=== PATIENT | male | born 1935 | race Caucasian/White ===

== ENCOUNTER 2017-02-05 15:10 | Emergency (ER) | payer OTHER, MEDICARE ==
[~2017-02-05] VITALS: Ht 177.8 cm; Wt 95.2 kg
[~2017-02-05 15:10] MED LIST: ALL300 PO; AMLO-110 PO; ASPI81TA28 PO; LPR50X PO; METO50TA16 PO; NITR0.4S UT; OMEG10007 PO
[2017-02-05 15:14] VITALS: TEMP 37; Ht 177.8 cm; Wt 95.2 kg
[2017-02-05] MEDS ORDERED: CEFAZOLIN SOD 1000MG/55 ML D5W IV STA (15:33)
--- NOTE | 2017-02-05 15:36 | EMERGENCY ROOM VISIT NOTE ---
History Report prepared by Ruben: Russell Monroe Under the Supervision of: Dr. Aury Neri D.O. First contact with patient: 15:20 Chief Complaint: LEG PAIN,LEG INJURY Stated Complaint: RIGHT LEG PAIN History of Present Illness The patient is an 81 year old male who presents to the Emergency Room with complaints of worsening right willis redness that started a week ago. He says that he was weed whacking 2 and a half weeks ago, and had a quarter of an inch plastic piece of the weed eater implanted into his right willis. The patient states that he pulled it out fully, and dressed his willis with peroxide. He then put on some Neosporin as well as a band-aid. He says that a week ago, the area that the plastic piece was implanted around started becoming red and swollen. The patient states that the area has been painful, and rates the pain as a 4 or 5 out of 10 in severity. He adds that the area has been getting more red over the week, so he went to Urgent Care yesterday and was put on Bactrim. He says that he has had 3 doses of the Bactrim so far, with no improvement so far. He notes that he called his primary care office today, and was recommended to come here to be treated. The patient says that he took 2 Tylenol for the pain 5 days ago, but nothing ever since then. He says that because of the Bactrim, he has had a headache all day and has been tired and nauseous. The patient notes that he ate yogurt prior to arrival, and it relieved the nausea. Per the patient's , the patient is borderline diabetic. The patient takes 2 baby aspirins per day. He denies any chills, vomiting, abdominal pain, discharge/drainage from the willis, or any other rashes or sores. Denies hx of MRSA. Source of History: patient, spouse/significant other Onset: A week ago Position: leg (right) Quality: other (red, swollen, painful) Timing: worsening Associated Symptoms: + headache (but probably due to Bactrim), + nausea ( probably due to medication), + fatigue (but probably due to Bactrim), No chills , No vomiting, No abdominal pain, No rash (any other rashes or sores) Note: Associated symptoms: Denies discharge/drainage from willis. Review of Systems See HPI for pertinent positives & negatives. A total of 10 systems reviewed and were otherwise negative. 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 Social History Smoking Status: Former Smoker Marital Status: Housing Status: lives with family Occupation Status: retired Current/Historical Medications Scheduled Allopurinol (Allopurinol), 300 MG PO DAILY Amlodipine (Norvasc), 2.5 MG PO DAILY Aspirin (Aspirin Ec), 81 MG PO DAILY Atorvastatin (Lipitor), 80 MG PO HS Calcitriol (Calcitriol), 0.25 MCG PO MWF Cephalexin (Keflex), 1 CAP PO BID Fish Oil ([place]-3), 1 CAPSULE PO BID Losartan Potassium (Cozaar), 100 MG PO DAILY Metoprolol Tartrate (Metoprolol Tartrate), 50 MG PO BID Metronidazole (Topical) (Metronidazole), 1 APPLN TOP PRN Prednisone (Prednisone), 5 MG PO PRN UD Sulfa/Trimethoprim (Bactrim Ds 800MG/160MG), 1 TAB PO BID Scheduled PRN Nitroglycerin (Nitrostat), 0.4 MG UT UD PRN for Chest Pain Allergies Coded Allergies: Procaine (Verified Allergy, Unknown, passed out, 06/23/16) Physical Exam Vital Signs Date Time Temp Pulse Resp B/P (MAP) Pulse Ox O2 Delivery O2 Flow Rate FiO2 02/05/17 17:45 82 20 168/71 97 02/05/17 16:40 91 20 179/82 97 Room Air 02/05/17 15:14 37.0 98 18 129/73 97 Room Air Physical Exam GENERAL: alert, well appearing, well nourished, no distress, non-toxic EYE EXAM: normal conjunctiva, PERRL and EOM's grossly intact OROPHARYNX: no exudate, no erythema, lips, buccal mucosa, and tongue normal and mucous membranes are moist NECK: supple, no nuchal rigidity, no adenopathy, non-tender LUNGS: Clear to auscultation. Normal chest wall mechanics HEART: no murmurs, S1 normal and S2 normal ABDOMEN: abdomen soft, non-tender, normo-active bowel sounds, no masses, no rebound or guarding. BACK: Back is symmetrical on inspection and there is no deformity, no midline tenderness, no CVA tenderness. SKIN: no rashes and no bruising UPPER EXTREMITIES: upper extremities are grossly normal. LOWER EXTREMITIES: Small area of redness in distal right lower extremity, no obvious retaining foreign body, no discharge, no bleeding. Mildly tender to palpation, trace to +1 pedal edema on right. No evidence of ascending lymphangitis. NEURO EXAM: Normal sensorium, cranial nerves II-XII grossly intact, normal speech, no gross weakness of arms, no gross weakness of legs. Gross sensation intact. Medical Decision & Procedures Laboratory Results 02/05/17 15:40 Red Blood Count 4.30, Mean Corpuscular Volume 97.0, Mean Corpuscular Hemoglobin 32.6, Mean Corpuscular Hemoglobin Concent 33.6, Mean Platelet Volume 11.4, Neutrophils (%) (Auto) 81.5, Lymphocytes (%) (Auto) 9.2, Monocytes (%) (Auto) 7.8, Eosinophils (%) (Auto) 0.6, Basophils (%) (Auto) 0.3, Neutrophils # (Auto) 2.91, Lymphocytes # (Auto) 0.33, Monocytes # (Auto) 0.28, Eosinophils # (Auto) 0.02, Basophils # (Auto) 0.01 02/05/17 15:40 Test 02/05/17 15:40 White Blood Count 3.57 K/uL (4.8-10.8) Red Blood Count 4.30 M/uL (4.7-6.1) Hemoglobin 14.0 g/dL (14.0-18.0) Hematocrit 41.7 % (42-52) Mean Corpuscular Volume 97.0 fL (80-100) Mean Corpuscular Hemoglobin 32.6 pg (25-34) Mean Corpuscular Hemoglobin Concent 33.6 g/dl (32-36) Platelet Count 102 K/uL (130-400) Mean Platelet Volume 11.4 fL (7.4-10.4) Neutrophils (%) (Auto) 81.5 % Lymphocytes (%) (Auto) 9.2 % Monocytes (%) (Auto) 7.8 % Eosinophils (%) (Auto) 0.6 % Basophils (%) (Auto) 0.3 % Neutrophils # (Auto) 2.91 K/uL (1.4-6.5) Lymphocytes # (Auto) 0.33 K/uL (1.2-3.4) Monocytes # (Auto) 0.28 K/uL (0.11-0.59) Eosinophils # (Auto) 0.02 K/uL (0-0.5) Basophils # (Auto) 0.01 K/uL (0-0.2) RDW Standard Deviation 47.5 fL (36.4-46.3) RDW Coefficient of Variation 13.5 % (11.5-14.5) Immature Granulocyte % (Auto) 0.6 % Immature Granulocyte # (Auto) 0.02 K/uL (0.00-0.02) Anion Gap 6.0 mmol/L (3-11) Est Creatinine Clear Calc Drug Dose 39.5 ml/min Estimated GFR () 42.9 Estimated GFR (Non- 37.0 BUN/Creatinine Ratio 16.2 (10-20) Calcium Level 9.1 mg/dl (8.5-10.1) Total Bilirubin 0.7 mg/dl (0.2-1) Aspartate Amino Transf (AST/SGOT) 30 U/L (15-37) Alanine Aminotransferase (ALT/SGPT) 31 U/L (12-78) Alkaline Phosphatase 67 U/L (45-117) Total Protein 7.1 gm/dl (6.4-8.2) Albumin 3.6 gm/dl (3.4-5.0) Globulin 3.5 gm/dl (2.5-4.0) Albumin/Globulin Ratio 1.0 (0.9-2) Laboratory results per my review. Medications Administered Medications (Trade) Dose Ordered Sig/Sohail Route Start Time Stop Time Status Last Admin Dose Admin Cefazolin Sodium (Ancef 1000mg/55 ml D5W) 1,000 mg NOW STAT IV 02/05/17 15:33 02/05/17 15:34 DC 02/05/17 15:47 1,000 MG ED Course 1523: The patient was evaluated in room C3. A complete history and physical exam was performed. 1533: I outlined the area on the patient's willis with a marking pen. Ordered Ancef 1000 mg/55 ml D5W 1000 mg IV. 1714: Upon reevaluation, the patient is feeling better. I discussed the findings and the treatment plan with the patient. He verbalizes agreement and understanding. He was discharged home. Medical Decision Differential diagnosis: Etiologies such as cellulitis, abscess, MRSA infection, DVT, necrotizing fasciitis, dermatitis, drug eruption, as well as others were entertained.. Pt obvious cellulitis on exam, doubt DVT based on PE. Mild leukopenia, no evidence of bacteremia/sepsis. Pt with hx of mild CKD, Cr today stable compared to prior. Discussed with pt risk of worsening renal function while on bactrim, however concern about changing to alternative antibiotic. Discussed addition of keflex, close f/u with PCP for recheck of cellulitis which was outlined with sterile marking pen and recheck of kidney function. Discussed hydration, probiotics, sx to watch/return for, risks/benefits of antibiotics, Pt with stable VS, well appearing at bedside. No evidence to suggest retained FB, nec fasc, ascending lymphangitis, pt has only been on antibiotic on day, I do not feel this qualities as failed outpt therapy yet. Medication Reconcilliation Current Medication List: was personally reviewed by me Blood Pressure Screening Patient's blood pressure: Elevated blood pressure Blood pressure disposition: Elevated BP felt to be situational Impression Primary Impression: Leg pain, right Additional Impression: Cellulitis Scribe Attestation The scribe's documentation has been prepared under my direction and personally reviewed by me in its entirety. I confirm that the note above accurately reflects all work, treatment, procedures, and medical decision making performed by me. Departure Information Dispostion Home / Self-Care Prescriptions Cephalexin (KEFLEX) 500 Mg Cap 1 CAP PO BID for 7 Days, #14 CAP Prov: Aury Neri, 02/05/17 Referrals Jimmy Cota D.O. (PCP) Patient Instructions My [facility] Additional Instructions Please call and follow-up with your family doctor. Please continue the antibiotics as prescribed. Please monitor the rash for any changes. If the redness spreads outside the lines, you develop fevers/chills, nausea/vomiting, notice increased swelling of the leg, develop redness streaking up the leg, or you have any other new or concerning symptoms, please return to the emergency room. Your kidney number wasn't totally normal today, but it appears this has happened in the past. The bactrim, antibiotic, you are taking though can affect your kidneys also. Your kidney number needs to be rechecked by your family doctor. If you are feeling worse, if may need to be rechecked sooner. Please consider taking a probiotic while you are taking the antibiotic. Please drink plenty of water. If you have any other new concerns, please return to the emergency room. Problem Qualifiers Additional Impression: Cellulitis Site of cellulitis: extremity Site of cellulitis of extremity: lower extremity Laterality: right Qualified Codes: L03.115 - Cellulitis of right lower limb
[2017-02-05] MEDS ORDERED: CALC1CAP36 PO (15:38)
[2017-02-05] MEDS ORDERED: SULF800T23 PO (15:38)
[2017-02-05] MEDS ORDERED: METR0.7536 TOP (15:39)
[2017-02-05] MEDS ORDERED: PRED-301 PO (15:39)
[2017-02-05 16:22] LABS: BASO % 0.3 %; BASO ABS # 0.01 K/uL (0-0.2); COMPLETE YES; EOS % 0.6 %; HEMATOCRIT 41.7 % (42-52); IG% 0.6 %; LYMPH % 9.2 %; LYMPH ABS # 0.33 K/uL (1.2-3.4); MEAN CORPUSCULAR HEMOGLOBIN 32.6 pg (25-34); MEAN CORPUSCULAR HGB CONC 33.6 g/dl (32-36); MEAN PLATELET VOLUME 11.4 fL (7.4-10.4); MONO % 7.8 %; NEUT % 81.5 %; PLATELET COUNT 102 K/uL (130-400); WHITE BLOOD COUNT 3.57 K/uL (4.8-10.8)
[2017-02-05 16:43] LABS: BUN/CREATININE RATIO 16.2 (10-20); CALCIUM 9.1 mg/dl (8.5-10.1); CREATININE 1.7 mg/dl (0.60-1.40); POTASSIUM 4.7 mmol/L (3.5-5.1)
[2017-02-05] MEDS ORDERED: CEPH-571 PO (17:39)
[2017-02-05 17:45] VITALS: BP 168/71; PULSE 82; O2SAT 97
[2017-02-05] MEDS ORDERED: LOSA100T65 PO (19:40)
[2017-02-05] MEDS ORDERED: ATOR-26 PO (22:15)
== END 2017-02-05 17:46 | disposition home or self-care (01) ==
LOC: C.EDB 15:11 → C.EDC 17:46
DX: M79.604 Pain in right leg (principal); L03.115 Cellulitis of right lower limb; E11.9 Type 2 diabetes mellitus without complications; I10 Essential (primary) hypertension; I25.10 Atherosclerotic heart disease of native coronary artery without angina pectoris; M19.90 Unspecified osteoarthritis, unspecified site; Z98.61 Coronary angioplasty status; Z87.11 Personal history of peptic ulcer disease; Z79.82 Long term (current) use of aspirin; Z79.899 Other long term (current) drug therapy; Z87.891 Personal history of nicotine dependence; Z88.8 Allergy status to other drugs, medicaments and biological substances

== ENCOUNTER 2019-02-02 08:11 | Inpatient (IN) ==
--- OUTSIDE RECORDS SUMMARY | 2019-02-02 08:14 | External Medical Summary | Continuity of Care Document ---
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 Quantity: 30 Refills: 5 amLODIPine Besylate 5 MG Oral Tablet; TAKE 0.5 TABLET Daily Quantity: 30 Refills: 1 Aspirin TABS Refills: 0 Metoprolol Tartrate TABS Refills: 0 Lipitor TABS Refills: 0 Losartan Potassium TABS Refills: 0 Kenalog 0.1 % OINT Refills: 0 [place] 3 CAPS Refills: 0 Mometasone Furoate 0.1 % External Ointme nt; APPLY SPARINGLY TO AFFECTED AREA(S) ONCE DAILY Jorden Payton Ajay Start: 18-Feb-2016 Quantity: 1 15 GM Tube Refills: 3 Econazole Nitrate 1 % External Cream; AP PLY SPARINGLY TO THE AFFECTED AREA(S) TWICE DAILY. Jorden Payton Start: 23-Apr-2015 Quantity: 1 85 GM Tube Refills: 2 Nitrostat 0.4 MG Sublingual Tablet Subli ngual; PLACE 1 TABLET UNDER THE TONGUE EVERY 5 MINUTES FOR UP TO 3 DOSES NEEDED FOR CHEST PAIN.CALL 911 IF PAIN PERSISTS. Start: 18-Dec-2015 Quantity: 1 25 Tablet Sublingual Bottle Refills: 0 predniSONE 5 MG Oral Tablet; TAKE 1 TABLET DAILY. Start: 18-Dec-2015 Refills: 0 Procedures History of Carotid Thromboendarterectomy Status: Completed History of Cardiac Cath Lesion 1, Primary Treat Device: Sten t Status: Completed History of Appendectomy Status: Complete d Immunizations Influenza Comments:Approx 14Se p2014 Family History Unknown Family Member No pertinent family history (V49.89) (Z78.9) Status: Active Comments: Family History Social History - Smoking Status Never smoker Plan of Treatment Planned Observations Planned Goals not documented Results No Known Results Results not documented Encounters Appointment; Valente Mcmillan Au.D.|CCC-A 01-Jun-2017 7:40 Encounter Diagnosis: Problem not documented"
[2019-02-02] MEDS ORDERED: NITROGLYCERIN SL 0.4 MG/TAB TAB SL PRN ×2 (08:33→11:30)
[2019-02-02] MEDS ORDERED: ASPIRIN CHEW 324 MG PO STA (08:33)
[2019-02-02 08:47] LABS: Basophils # (auto) 0.01 K/uL (0-0.2); Basophils % (auto) 0.2 %; Eosinophils # (auto) 0.22 K/uL (0-0.5); Eosinophils % (auto) 4.3 %; Hematocrit (blood only) 40.7 % (42-52); Hemoglobin 13.3 g/dL (14.0-18.0); Immature Granulocytes # (auto) 0.01 K/uL (0.00-0.02); Immature Granulocytes % (auto) 0.2 %; Lymphocytes # (auto) 1.57 K/uL (1.2-3.4); Lymphocytes % (auto) 30.5 %; Mean Corpuscular Hgb Conc 32.7 g/dL (32-36); Mean Corpuscular Volume 97.6 fL (80-100); Mean Platelet Volume 11.8 fL (7.4-10.4); Monocytes # (auto) 0.62 K/uL (0.11-0.59); Monocytes % (auto) 12.1 %; Neutrophils # (auto) 2.71 K/uL (1.4-6.5); Neutrophils % (auto) 52.7 %; Platelet Count 109 K/uL (130-400); RDW Coefficient of Variation 14.1 % (11.5-14.5); RDW Standard Deviation 50.1 fL (36.4-46.3); Red Blood Count 4.17 M/uL (4.7-6.1); White Blood Count 5.14 K/uL (4.8-10.8)
[2019-02-02 08:54] LABS: Albumin Level 3.6 gm/dl (3.4-5.0); Blood Urea Nitrogen 34 mg/dl (7-18); Carbon Dioxide 27 mmol/L (21-32); Chloride 107 mmol/L (98-107); Creatinine Clr Calc Pharmacy 36.6 ml/min; Est GFR (Non-African American) 34.5; Glucose 139 mg/dl (70-99); Potassium 4.2 mmol/L (3.5-5.1); Sodium 141 mmol/L (136-145)
--- NOTE | 2019-02-02 08:57 | XRay Report ---
XR chest 1V portable HISTORY: 83 years-old Male Chest Pain acute atypical chest pain COMPARISON: Chest radiograph 06/23/2016 TECHNIQUE: Portable AP view of the chest FINDINGS: Cardiac silhouette appears normal. Mild interstitial coarsening of the mid and lower lung zones has s lightly progressed from comparison. Calcified plaque of the thoracic aortic arch. There is no pneumot horax, large pleural effusion or overt pulmonary edema. Mild blunting of the costophrenic angles. Deg enerative changes of the shoulders and spine. IMPRESSION: Mild interstitial coarsening has progressed from 2016, likely on a chronic basis. Mild pu lmonary edema or nonspecific pneumonitis also within the differential. The above report was generated using voice recognition software. It may contain grammatical, syntax o r spelling errors. Electronically signed by: Angel Gaming M.D. 02/02/2019 8:56 AM
[2019-02-02 08:59] LABS: Alanine Aminotransferase 53 U/L (12-78); Albumin Globulin Ratio 1.1 (0.9-2); Alkaline Phosphatase 77 U/L (45-117); Aspartate Aminotransferase 44 U/L (15-37); Bilirubin,Total 0.6 mg/dl (0.2-1); Globulin 3.3 gm/dl (2.5-4.0); Total Protein 6.9 gm/dl (6.4-8.2); Troponin I < 0.015 ng/ml (0-0.045)
--- NOTE | 2019-02-02 10:24 | Emergency Department Note ---
Entered by Kirstin Angelo acting as a scribe for Debra Smith MD History of Present Illness General Chief complaint: Chest Pain Stated complaint: CHEST PAIN Source: patient History of Present Illness Onset (ago): day(s) (several) Location: chest Radiation: non-radiation Pain Consistency: + intermittent Maximum Pain Intensity: 8 Current Pain Intensity: 8 Quality: + other (heaviness; pressure) Associated symptoms: + diaphoresis, + shortness of breath and + other (positive dizziness); no nausea/vomiting Treatments prior to arrival: other (baby aspirin) The patient is a 83 year old male who presents to the Emergency Room with complaints of intermittent chest pain that began several days prior to arrival. The patient describes this "discomfort" as a heaviness and pressure, and rates it at an 8/10. He states that with this discomfort he sometimes feels short of breath, dizzy, and sweaty. The patient denies radiation of his pain to his arms and jaw. He denies nausea or vomiting. The patient reports that he had a stent placed in 2004, and states that his last stress test was last year. He states that he took a baby aspirin last night, but denies taking Nitro. Home Medications Home Medications Medication Instructions Recorded Confirmed Type allopurinol 300 mg PO DAILY 02/02/19 02/02/19 History amlodipine 5 mg PO DAILY 02/02/19 02/02/19 History aspirin 81 mg PO DAILY 02/02/19 02/02/19 History atorvastatin 80 mg PO PM 02/02/19 02/02/19 History furosemide 20 mg PO DAILY 02/02/19 02/02/19 History isosorbide mononitrate 30 mg PO QAM 02/02/19 02/02/19 History metoprolol tartrate 50 mg PO BID 02/02/19 02/02/19 History nitroglycerin 0.4 mg SUBLINGUAL UD 02/02/19 02/02/19 History omega-3 fatty acids 1,250 mg PO DAILY 02/02/19 02/02/19 History ranitidine HCl 150 mg PO DAILY PRN 02/02/19 02/02/19 History Allergies Allergy/AdvReac Type Severity Reaction Status Date / Time procaine Allergy Unknown passed out Verified 02/02/19 08:42 Bactrim AdvReac Mild HIVES Unverified 10/13/17 07:39 sulfamethoxazole AdvReac Mild HIVES Unverified 02/02/19 08:42 trimethoprim AdvReac Mild HIVES Unverified 02/02/19 08:42 Past Med/Surg History Medical History Chronic cough (Chronic Unknown) Idiopathic thrombocytopenic purpura (Resolved Unknown) Reflux gastritis (Acute) Family History Other No significant family history Social History Feels Safe at Home: Yes Smoking Status: Former smoker Review of Systems See HPI for pertinent positives & negatives. and A total of 10 systems reviewed and were otherwise negative Physical Exam Vital Signs Vital Signs - 24 hr 02/02/19 08:15 02/02/19 08:24 02/02/19 08:30 Temperature 36.4 C L Temperature Source Oral Sepsis Recent Fever Within 48 Hours No Sepsis Action Taken by Nursing No Action Required Pulse Rate 64 54 L 56 L Pulse Rate from SpO2 Sensor 60 58 L Respiratory Rate 18 23 18 Blood Pressure 117/69 148/95 H 135/89 Blood Pressure Mean 85 112 104 Blood Pressure Position Sitting Pulse Oximetry 95 99 98 Oxygen Delivery Method Room Air Nasal Cannula Nasal Cannula Oxygen Flow Rate 2 2 02/02/19 08:37 02/02/19 08:48 02/02/19 09:00 Temperature Temperature Source Sepsis Recent Fever Within 48 Hours Sepsis Action Taken by Nursing Pulse Rate 55 L 49 L Pulse Rate from SpO2 Sensor 51 L 51 L Respiratory Rate 19 22 Blood Pressure 121/74 145/67 H Blood Pressure Mean 89 93 Blood Pressure Position Pulse Oximetry 98 98 Oxygen Delivery Method Room Air Nasal Cannula Nasal Cannula Oxygen Flow Rate 2 2 02/02/19 09:31 02/02/19 09:51 02/02/19 10:01 Temperature Temperature Source Sepsis Recent Fever Within 48 Hours Sepsis Action Taken by Nursing Pulse Rate 58 L 55 L 56 L Pulse Rate from SpO2 Sensor 61 57 L 57 L Respiratory Rate 24 18 20 Blood Pressure 111/83 136/83 126/63 Blood Pressure Mean 92 100 84 Blood Pressure Position Pulse Oximetry 94 95 96 Oxygen Delivery Method Room Air Oxygen Flow Rate Vital signs reviewed. General: Well-appearing 83 year old male, in no significant distress. HEENT: No scleral icterus, PERRLA, neck supple. Atraumatic. Cardiovascular: Regular rate and rhythm, no extra sounds. Pulmonary: Clear to auscultation bilaterally, normal work of breathing. Abdomen: Obese abdomen. Soft, nontender, nondistended, positive bowel sounds. Musculoskeletal: Atraumatic, no peripheral edema. Neurologic: Patient awake alert and oriented x 3 Skin: Warm, dry, no rash Course 0831: Past medical records reviewed. The patient was evaluated in room A10. A complete history and physical exam was performed. 0911: I discussed the case with Ivette Daniels PA-C who accepts the patient for further evaluation. 0913: I checked on and updated the patient. He is in agreement with the treatment plan. Administered Medications Nitroglycerin (Nitrostat) 0.4 mg SL UD PRN PRN Reason: Chest Pain Stop: 03/04/19 08:32 Last Admin: 02/02/19 08:42 Dose: 0.4 mg Documented by: [id number] Discontinued Medications Aspirin (Aspirin) 324 mg PO NOW STA Stop: 02/02/19 08:34 Last Admin: 02/02/19 08:40 Dose: 324 mg Documented by: [id number] Medical Decision Making Differential Diagnosis Differential diagnosis: Etiologies such as cardiac ischemia, aortic dissection, pulmonary embolism, pneumonia, pneumothorax, musculoskeletal, infections, pericarditis, myocarditis, esophageal rupture, gastrointestinal, as well as others were entertained. Medical Records Attestation: I reviewed the patient's medical records. Home Medications Current Medication List: was personally reviewed by me Laboratory Data Attestation: I reviewed the patient's lab results. Result diagrams: 02/02/19 08:24 02/02/19 08:24 Lab Results 02/02/19 02/02/19 02/02/19 Range/Units 08:24 08:24 08:24 WBC 5.14 (4.8-10.8) K/uL RBC 4.17 L (4.7-6.1) M/uL Hgb 13.3 L (14.0-18.0) g/dL Hct 40.7 L (42-52) % MCV 97.6 (80-100) fL MCH 31.9 (25-34) pg MCHC 32.7 (32-36) g/dL RDW Std Deviation 50.1 H (36.4-46.3) fL RDW Coeff of Bill 14.1 (11.5-14.5) % Plt Count 109 L (130-400) K/uL MPV 11.8 H (7.4-10.4) fL Immature Gran % (Auto) 0.2 % Neut % (Auto) 52.7 % Lymph % (Auto) 30.5 % [place] % (Auto) 12.1 % Eos % (Auto) 4.3 % Baso % (Auto) 0.2 % Immature Gran # (Auto) 0.01 (0.00-0.02) K/uL Neut # (Auto) 2.71 (1.4-6.5) K/uL Lymph # (Auto) 1.57 (1.2-3.4) K/uL [place] # (Auto) 0.62 H (0.11-0.59) K/uL Eos # (Auto) 0.22 (0-0.5) K/uL Baso # (Auto) 0.01 (0-0.2) K/uL Sodium 141 (136-145) mmol/L Potassium 4.2 (3.5-5.1) mmol/L Chloride 107 (98-107) mmol/L Carbon Dioxide 27 (21-32) mmol/L Anion Gap 7.0 (3-11) BUN 34 H (7-18) mg/dl Creatinine 1.78 H (0.6-1.4) mg/dl Est Cr Clr Drug Dosing 36.6 ml/min Est GFR ( Amer) 40.0 Est GFR (Non-Af Amer) 34.5 BUN/Creatinine Ratio 19.0 (10-20) Glucose 139 H (70-99) mg/dl Calcium 9.0 (8.5-10.1) mg/dl Magnesium 2.1 (1.8-2.4) mg/dl Total Bilirubin 0.6 (0.2-1) mg/dl AST 44 H (15-37) U/L ALT 53 (12-78) U/L Alkaline Phosphatase 77 (45-117) U/L Troponin I < 0.015 (0-0.045) ng/ml Total Protein 6.9 (6.4-8.2) gm/dl Albumin 3.6 (3.4-5.0) gm/dl Globulin 3.3 (2.5-4.0) gm/dl Albumin/Globulin Ratio 1.1 (0.9-2) Lipase 194 (73-393) U/L TSH 2.640 (0.300-4.500) uIu/ml Imaging Data Radiologist's Impression: Radiology results as stated below per my review and the radiologist's interpretation: XR chest 1V portable HISTORY: 83 years-old Male Chest Pain acute atypical chest pain COMPARISON: Chest radiograph 06/23/2016 TECHNIQUE: Portable AP view of the chest FINDINGS: Cardiac silhouette appears normal. Mild interstitial coarsening of the mid and lower lung zones has slightly progressed from comparison. Calcified plaque of the thoracic aortic arch. There is no pneumothorax, large pleural effusion or overt pulmonary edema. Mild blunting of the costophrenic angles. Degenerative changes of the shoulders and spine. IMPRESSION: Mild interstitial coarsening has progressed from 2016, likely on a chronic basis. Mild pulmonary edema or nonspecific pneumonitis also within the differential. The above report was generated using voice recognition software. It may contain grammatical, syntax or spelling errors. Electronically signed by: Angel Gaming M.D. 02/02/2019 8:56 AM ECG Data Attestation: I personally reviewed and interpreted this ECG as follows: Indication: chest pain Rate (beats per minute): 62 Rhythm: atrial fibrillation Findings: no acute ischemic change and no ectopy Blood Pressure Blood Pressure Findings: Normal blood pressure MDM Narrative This patient was evaluated and appeared to be in no significant distress. IV access was obtained and laboratory work was drawn. The patient was placed on the media professional and found to be in a normal sinus rhythm. EKG reveals no evidence of acute ischemic change. Chest x-ray was performed and reveals no focal infiltrate. Laboratory work reveals a negative troponin. Patient has a history of CAD and coronary stent. He will be evaluated by the hospitalist service for further cardiac evaluation. He is aware of this plan and agrees. Impression & Plan Chest pain, CAD (coronary artery disease) Discharge Plan Visit Data Chief Complaint: Chest Pain Stated Complaint: CHEST PAIN ED Provider: Debra Smith Discharge Problem: Chest pain, CAD (coronary artery disease) Patient Disposition: Being Evaluated by Hospitalist Forms Stand Alone Forms: [facility] WebAction Prescriptions Prescriptions: No Action atorvastatin 80 mg tablet 80 mg PO PM RF: 0 isosorbide mononitrate 30 mg tablet extended release 24 hr 30 mg PO QAM RF: 0 amlodipine 5 mg tablet 5 mg PO DAILY RF: 0 metoprolol tartrate 50 mg tablet 50 mg PO BID RF: 0 allopurinol 300 mg tablet 300 mg PO DAILY RF: 0 furosemide 20 mg tablet 20 mg PO DAILY RF: 0 aspirin 81 mg Tablet,Delayed Release (Dr/Ec) 81 mg PO DAILY RF: 0 ranitidine HCl 150 mg Tablet 150 mg PO DAILY PRN (Reason: Heartburn) RF: 0 nitroglycerin 0.4 mg Tablet, Sublingual 0.4 mg sublingual UD RF: 0 omega-3 fatty acids 1,250 mg Capsule 1,250 mg PO DAILY RF: 0 Referrals Referrals: Jimmy Cota DO [Primary Care Provider] - Discharge Problem: Chest pain Qualifiers: Chest pain type: precordial pain Qualified Code(s): R07.2 - Precordial pain CAD (coronary artery disease) Qualifiers: Coronary Disease-Associated Artery/Lesion type: [place] artery [place] vs. transplanted heart: [place] heart Associated angina: with unstable angina Qualified Code(s): I25.110 - Atherosclerotic heart disease of [place] coronary artery with unstable angina pectoris The scribe's documentation has been prepared under my direction and personally reviewed by me in its entirety. I confirm that the note above accurately reflects all work, treatment, procedures, and medical decision making performed by me.
[2019-02-02 10:26] LABS: Magnesium 2.1 mg/dl (1.8-2.4)
--- NOTE | 2019-02-02 10:50 | History & Physical Report ---
Date of Service February 02, 2019 Assessment & Plan (1) Chest pain: (2) CAD (coronary artery disease): (3) Bradycardia: (4) Atrial fibrillation: Pt is 83 y/o M with PMH CAD s/p bare metal stent to left circumflex in 2005, HTN, HLD, DM II, CKD III, carotid stenosis s/p right carotid endartere ctomy 2004, PVD, gout, h/o ITP presented with c/o intermittent chest tightness x couple of days with associated SOB, dizziness. Patient reports hx of progressive exertional SOB and occasional chest tightness with overexertion for several months and was started on Imdur in 10/2018. Hx 2018 history echo: EF: 55-59%, grade 2 diastolic dysfunction, mild mitral regurgitation, trace tricuspid regurgitation, normal wall motion Hx 01/2018 Lexiscan nuclear cardiac stress test: negative for ischemia. normal wall motion. The left ventricular ejection fraction:63%. In ER patient was given aspirin 324 mg p.o., nitroglycerin sublingual x1 reducing CP from 8 out of 10 to 0-0.5/10. Denies any further SOB/dizziness. Heart rate 40's-60's. BP: 117/69, 145/67, 95-98% on room air. Negative initial troponin. EKG: afib, rate 62. No leukocytosis, H/H: 13/40 (at baseline), Plt: 109, TSH: 2.6, magnesium: 2.1 CXR: Mild interstitial coarsening has progressed from 2016, likely on a chronic basis. Mild pulmonary edema or nonspecific pneumonitis also within the differential. No previous h/o A-fib Chest pain R/O ACS. Risk factors: CAD, HTN, hyperlipidemia A-Fib -Monitor Vitals -Repeat EKG in am -Will trend troponin -Echo -lipid panel in am, continue statin -Continue aspirin -Hold metoprolol -Nitro prn CP and repeat EKG for CP -Will hold home lopressor 50mg bid secondary to bradycardia -Will hold on Heparin secondary to hx ITP, will appreciate recommendations from cardiology -Cardiology consult (5) HTN (hypertension): Stable -Continue amlodipine, lasix (6) CKD (chronic kidney disease), stage III: Cr: 1.78. Baseline ~1.6 -Monitor renal functions -Avoid nephrotoxic agents when possible (7) Diabetes mellitus, type II: Diet controlled A1c: 6.6 on 10/12/18 (8) HLD (hyperlipidemia): -Continue atorvastatin (9) History of ITP: No active bleeding Plt: 109 and are at baseline -Monitor CBC (10) Gout: -Continue allopurinol (11) Carotid stenosis: S/P R carotid endarterectomy DVT Prophylaxis -SCDs Full code as per discussion with pt and pt's Follows with Dr Cota for routine care Pt was seen and care coordinated with Dr Gee. See addendum History of Present Illness Chief Complaint: Chest pain Primary Care Provider: Jimmy Cota, DO Pt is 83 y/o M with PMH CAD s/p bare metal stent to left circumflex in 2004, HTN, HLD, DM II, CKD III, carotid stenosis s/p right carotid endarterectomy 2004, PVD, gout, h/o ITP presented to ER with complaint of chest pain. Patient reports history of progressive exertional shortness of breath and occasional chest tightness with overexertion for several months. Was seen cardiology clinic 10/2018 and at that point time patient reports did not want further testing and Imdur was added. Patient states initially he felt like Imdur was helpful however felt like that was short-lived. Patient states over the past several days has been having intermittent chest tightness with associated shortness of breath and dizziness. Reports symptoms can happen at rest or with walking. Symptoms can last for approximately 30 minutes and then resolved. Patient reports that he has not tried any nitroglycerin at home for this pain. Pt states that he sweats easily and is unsure if he has increased diaphoresis with these episodes. He reports having his morning medicines today including Lopressor 50 mg, indoor 30 mg, amlodipine 5 mg, baby aspirin, furosemide 20 mg. Denies fever/chills, N/V/D/C, [place],syncope, vision changes, neck pain, orthopnea, palpitations, cough, sore throat, choking, otalgia, rhinorrhea, abdominal pain, paresthesias, weakness, extremity weakness, extremity edema, rashes, urinary symptoms. In ER patient was given aspirin 324 mg p.o., nitroglycerin sublingual x1 taking chest discomfort from 8 out of 10 to 0-0.5/10 and patient denies any further shortness of breath or dizziness. Heart rate 40's-60's. BP: 117/69, 145/67, 95-98% on room air. Negative initial troponin. 2018 history echo: EF: 55-59%, grade 2 diastolic dysfunction, mild mitral regurgitation, trace tricuspid regurgitation, normal wall motion 01/2018 Lexiscan nuclear cardiac stress test: negative for ischemia. normal wall motion. The left ventricular ejection fraction:63%. [place] [facility] [place] 95% stenosis in PDA, 60% stenosis origin of the first obtuse marginal branch, 70% stenosis at junction of proximal and mid RCA, diffuse disease throughout the LAD Allergies Allergy/AdvReac Type Severity Reaction Status Date / Time procaine Allergy Unknown passed out Verified 02/02/19 08:42 Bactrim AdvReac Mild HIVES Unverified 04/10/17 07:39 sulfamethoxazole AdvReac Mild HIVES Unverified 02/02/19 08:42 trimethoprim AdvReac Mild HIVES Unverified 02/02/19 08:42 Home Medications Home Medications Medication Instructions Recorded Confirmed Type allopurinol 300 mg PO DAILY 02/02/19 02/02/19 History amlodipine 5 mg PO DAILY 02/02/19 02/02/19 History aspirin 81 mg PO DAILY 02/02/19 02/02/19 History atorvastatin 80 mg PO PM 02/02/19 02/02/19 History furosemide 20 mg PO DAILY 02/02/19 02/02/19 History isosorbide mononitrate 30 mg PO QAM 02/02/19 02/02/19 History metoprolol tartrate 50 mg PO BID 02/02/19 02/02/19 History nitroglycerin 0.4 mg SUBLINGUAL UD 02/02/19 02/02/19 History omega-3 fatty acids 1,250 mg PO DAILY 02/02/19 02/02/19 History ranitidine HCl 150 mg PO DAILY PRN 02/02/19 02/02/19 History Past Med/Surg History Medical History GERD (gastroesophageal reflux disease) (Chronic) History of ITP (Chronic) PVD (peripheral vascular disease) (Chronic) Carotid stenosis (Chronic) CKD (chronic kidney disease), stage III (Chronic) Diabetes mellitus, type II (Chronic) HLD (hyperlipidemia) (Chronic) HTN (hypertension) (Chronic) CAD (coronary artery disease) (Chronic) Chronic cough (Chronic Unknown) Idiopathic thrombocytopenic purpura (Resolved Unknown) Surgical History History of cardiac catheterization (Chronic) History of right-sided carotid endarterectomy (Chronic) Family History Other Diabetes Hypertension Stroke Social History Preferred Language: Greek Communication Ability: Effective Apprentice Stylist Required: No Beliefs That Will Affect Care: None Current Living Situation: Spouse Other Information That Helps Us Care for You: No Feels Safe at Home: Yes Safety Concerns: Feels Safe At This Time Smoking Status: Former smoker Smoking End Date: Quit 1973, had smoked 2ppd x 20 years ; Hx Alcohol Use: Yes Alcohol type: wine Hx Substance Use: No Review of Systems Review of Systems: All systems reviewed & are unremarkable except as noted in HPI & below Physical Exam Physical Exam: General: no acute distress, WDWN Head: normocephalic, atraumatic Eyes: PERRL, EOM's intact, conjunctiva non-injected, anicteric ENT: normal inspection external ears, nose, mucous membranes moist Neck: supple, trachea midline Lungs: clear, no respiratory distress, no wheezing/rhonchi/rales CV: rate 56, irregular, no murmur noted, no pretibial edema Abd: normal BS, soft, non-tender Ext: no cyanosis, no calf tenderness Neuro: A&O x 3, no focal deficits noted, normal affect Skin: warm, dry Results & Data Vital Signs (Past 12 Hours) Vital Signs Temp Pulse Resp BP Pulse Ox 02/02/19 10:01 56 L 20 126/63 96 02/02/19 09:51 55 L 18 136/83 95 02/02/19 09:31 58 L 24 111/83 94 02/02/19 09:00 49 L 22 145/67 H 98 02/02/19 08:48 55 L 19 121/74 98 02/02/19 08:30 56 L 18 135/89 98 02/02/19 08:24 54 L 23 148/95 H 99 02/02/19 08:15 36.4 C L 64 18 117/69 95 Laboratory Results Short CBC 02/02/19 Range/Units 08:24 WBC 5.14 (4.8-10.8) K/uL Hgb 13.3 L (14.0-18.0) g/dL Hct 40.7 L (42-52) % Plt Count 109 L (130-400) K/uL BMP 02/02/19 08:24 Sodium 141 Potassium 4.2 Chloride 107 Carbon Dioxide 27 BUN 34 H Creatinine 1.78 H Glucose 139 H Calcium 9.0 Cardiac Enzymes 02/02/19 Range/Units 08:24 Troponin I < 0.015 (0-0.045) ng/ml Liver Function 02/02/19 Range/Units 08:24 Total Bilirubin 0.6 (0.2-1) mg/dl AST 44 H (15-37) U/L ALT 53 (12-78) U/L Alkaline Phosphatase 77 (45-117) U/L Albumin 3.6 (3.4-5.0) gm/dl Diagnostic Findings CXR: IMPRESSION: Mild interstitial coarsening has progressed from 2016, likely on a chronic basis. Mild pulmonary edema or nonspecific pneumonitis also within the differential. Supervising Physician Co-Signing Physician Notes Pt was seen and examined. Agreed with Ivette DAVIS exam, assessment and plan. 83 y/o M with PMH CAD s/p bare metal stent to left circumflex in 2004, HTN, HLD, DM II, CKD III, carotid stenosis s/p right carotid endarterectomy 2004, PVD, gout, h/o ITP presented to the ER for Episode of intermittent chest tightness associated with SOB and dizziness for the last few weeks. Pt said that he ran out of breath easily with minimal exertion. EKG done in the ER was found to be in Afib with HR in the 50's to 60's. Troponin negative on admission, will trend troponin. Will consult cardiology. Will hold on anticoagulant for now due to history of ITP, low platelet and episodes of nose bleeding in the past. Will discuss anticoagulant with cardio. Will get an echo. Will monitor in tele. HR in the 40, will resume metoprolol when HR improves. MD Gerard (1) CAD (coronary artery disease) Associated angina: with unstable angina Coronary Disease-Associated Artery/Lesion type: [place] artery [place] vs. transplanted heart: [place] heart Qualified Code(s): I25.110 - Atherosclerotic heart disease of [place] coronary artery with unstable angina pectoris (2) Chest pain Chest pain type: precordial pain Qualified Code(s): R07.2 - Precordial pain
[2019-02-02] MEDS ORDERED: ONDANSETRON INJ 2 MG/ML 2 ML VIAL IV PRN (11:30)
[2019-02-02] MEDS ORDERED: Heparin IV Standard *NO* Bolus IV SCH (14:15)
[2019-02-02] MEDS ORDERED: HEPARIN SODIUM/DEXTROSE 25,000 UNITS/500 ML BAG IV SCH (14:40)
--- NOTE | 2019-02-02 16:44 | Consultation Report ---
DATE OF ADMISSION: 02/02/2019 CONSULTATION REQUESTED BY: Mary Guillen PA-C. REASON FOR CONSULTATION: Chest discomfort and new onset atrial fibrillation. HISTORY OF PRESENT ILLNESS: Mr. Apodaca is a very pleasant 83-year-old gentleman who normally follows with Ajay Waters and Dr. Elliott of our Cardiology practice. He presented to [facility] Emergency Department on 02/02/2019 with complaints of chest discomfort. He states that for the last several weeks to months he has not been noticing that he has been getting more and more short of breath with exertion and then approximately 2 weeks ago, he started noticing that he was developing chest discomfort with exertion as well. He described the discomfort as a substernal pressure/tightness sensation that started in his mid substernal area and radiated across his left precordium up into his left shoulder. He states that subsequently over the next 2 weeks, he became more and more short of breath with less and less exertion and noticing that chest discomfort started to happen at rest as well. During this time period he started feeling very washed out and very tired and he just did not have the energy to do much of anything. He also started noticing some lightheadedness and dizziness with exertion. His symptoms progressed to the point where this morning he was unable to tolerate them any further and he came into the Emergency Department at the urging of his family. Upon arrival, he was found to be in new onset atrial fibrillation with a controlled ventricular response in the 50s and 60s. No signs of active ischemia on initial EKG or blood work and he was admitted to telemetry. While at rest, he states he still just does not feel well. He is not short of breath or having chest discomfort currently, but he just states he feels tired and run down, but he denies experiencing any palpitations. Of note, the patient was last seen by Ajay Waters PA-C in October at which time he was having symptoms of dyspnea and the patient was offered an ischemic workup at that time including either stress testing or cardiac catheterization and the patient deferred at that time opting for medical management only. PAST SURGICAL HISTORY: 1. Cardiac catheterization in 02/2005 revealed a left dominant system with a 95% stenosis of the PDA, 60% stenosis in the origin of the first obtuse marginal, 70% stenosis at the junction of the proximal and mid RCA and mild diffuse disease throughout the LAD. He underwent subsequent PCI with bare metal stent to the PDA. 2. Carotid endarterectomy. 3. Colonoscopies. 4. Appendectomy. 5. Hand surgery. 6. Cataract surgery. 7. Tonsil and adenoidectomy. MEDICAL ILLNESSES: 1. Coronary artery disease as above. 2. Carotid stenosis status post right carotid endarterectomy. 3. Type 2 diabetes. 4. Peripheral arterial disease with intermittent claudication. 5. Hyperparathyroidism. 6. ITP. 7. Gout. 8. Dyslipidemia. 9. Hypertension. 10. Diastolic dysfunction with normal LV systolic function. FAMILY HISTORY: Noncontributory given the patient's age. SOCIAL HISTORY: The patient has a very remote tobacco use history, quit in 1973. Denies any alcohol or recreational drug use. He is and lives at home with his . His and 2 daughters were present during the interview today. REVIEW OF SYSTEMS: As per HPI, all other review of systems reviewed and negative at this time. ALLERGIES: 1. LISINOPRIL. 2. NOVOCAIN. 3. PROCAINE. 4. BACTRIM. MEDICATIONS AN OUTPATIENT: 1. Aspirin 81 mg daily. 2. Imdur 30 mg daily. 3. Atorvastatin 80 mg daily. 4. Lasix 20 mg daily. 5. Amlodipine 5 mg daily. 6. Metoprolol tartrate 50 mg b.i.d. 7. Nitro p.r.n. 8. Allopurinol daily. PHYSICAL EXAMINATION: VITALS: Temperature 37.2, pulse 87, respiratory rate 12, blood pressure 155/106. GENERAL: Awake, alert, oriented x3 in no acute distress. HEENT: Normocephalic, atraumatic. Pupils equal, round, reactive to light and accommodation. Extraocular muscles intact. Anicteric sclerae. Moist mucous membranes. NECK: No JVD, no bruit. CARDIOVASCULAR: Irregularly irregular but slow. Unable to appreciate murmurs, rubs or gallops. PULMONARY: Clear to auscultation bilaterally with no rales, rhonchi, or wheezing. ABDOMEN: Bowel sounds x4, soft. No rebound, guarding, tenderness. No organomegaly. EXTREMITIES: No clubbing, cyanosis or edema. +1 pedal pulses bilaterally. SKIN: Warm and dry. TEST RESULTS: A 12-lead EKG performed in the Emergency Department independently reviewed at this time shows atrial fibrillation at 62 beats per minute, normal axis, normal intervals, no signs of active ischemia. LABORATORY STUDIES OF SIGNIFICANCE: Sodium 141, potassium 4.2, BUN 30, creatinine 1.8 which appears to be about his baseline. Troponin negative x2. White blood cell count of 5.4, hemoglobin 13.3, platelet count of 109. A 2D echocardiogram shows normal LV systolic function without regional wall motion abnormality, EF 55-60%. IMPRESSION: 1. Chest pain and dyspnea with exertion, suspicious for unstable angina. 2. Newly discovered atrial fibrillation, rate controlled. 3. History of immune thrombocytopenic purpura with platelet count currently of 109, which appears to be approximately his baseline. 4. Chronic kidney disease with a creatinine of 1.8, again approximately baseline. 5. Diabetes. 6. Known coronary artery disease. 7. Peripheral arterial disease with carotid stenosis and claudication. RECOMMENDATIONS: It was my pleasure to see Mr. Apodaca in consultation today. The patient and his family were counseled at this point that not only do we have a newly discovered atrial fibrillation, but also signs and symptoms consistent with unstable angina and given the fact that his rate is well controlled, I do not believe his symptoms are from unstable angina. So at this point, we will proceed with cardiac catheterization in the a.m. and they are agreeable with this. In the meantime, I will start him on low-dose heparin to see how he tolerates anticoagulation with his history of ITP. I will also give him gentle IV fluids overnight given his chronic kidney disease. After the cardiac catheterization further intervention for atrial fibrillation may be considered. The patient and the family are in agreement with this plan. He will be made n.p.o. after midnight.
[2019-02-02 16:53] LABS: Prothrombin Time 10.3 Seconds (9.0-12.0)
[2019-02-02] MEDS: SODIUM CHLORIDE 0.9% 1000ML 1,000 ML IV SCH (16:55)
[2019-02-02] MEDS: ACETAMINOPHEN 325 MG TAB PO PRN (20:35)
[2019-02-02] MEDS ORDERED: ATORVASTATIN 40 MG TAB PO SCH (21:00)
[2019-02-02 21:29] LABS: Partial Thromboplastin Ratio 4.1
[2019-02-02 22:06] LABS: Partial Thromboplastin Time 110.5 Seconds (21.0-31.0)
[2019-02-03 05:32] LABS: Hematocrit (blood only) 39.4 % (42-52); Hemoglobin 12.8 g/dL (14.0-18.0); Mean Corpuscular Hgb Conc 32.5 g/dL (32-36); Mean Corpuscular Volume 99.2 fL (80-100); RDW Coefficient of Variation 13.8 % (11.5-14.5); RDW Standard Deviation 50.2 fL (36.4-46.3); Red Blood Count 3.97 M/uL (4.7-6.1); White Blood Count 6.48 K/uL (4.8-10.8)
[2019-02-03 05:51] LABS: Partial Thromboplastin Ratio 4.4
[2019-02-03 05:57] LABS: Partial Thromboplastin Time 119.5 Seconds (21.0-31.0)
[2019-02-03 05:58] LABS: Platelet Count 92 K/uL (130-400); Platelet Estimate Decreased (Normal)
[2019-02-03] MEDS ORDERED: STOP ORDER~HEPARIN DRIP ONE (06:00)
[2019-02-03 06:01] LABS: BUN Creatinine Ratio 20.6 (10-20); Calcium 8.2 mg/dl (8.5-10.1); Creatinine Clr Calc Pharmacy 41.2 ml/min; Est GFR (African American) 46.2; Est GFR (Non-African American) 39.9; Potassium 3.9 mmol/L (3.5-5.1)
[2019-02-03] MEDS: SODIUM CHLORIDE 0.9% 1000ML 1,000 ML IV SCH (06:01)
[2019-02-03] MEDS ORDERED: ASPIRIN 81 MG ECTAB PO SCH (09:00)
[2019-02-03] MEDS ORDERED: FUROSEMIDE 20 MG TAB PO SCH (09:00)
[2019-02-03] MEDS ORDERED: ALLOPURINOL 300 MG TAB PO SCH (09:00)
[2019-02-03] MEDS ORDERED: AMLODIPINE BESYLATE 5 MG TAB PO SCH (09:00)
[2019-02-03] MEDS ORDERED: ISOSORBIDE MONO EXTENDED REL 30 MG TABCR PO SCH (09:00)
[2019-02-03] MEDS ORDERED: NITROGLYCERIN 2% OINTMENT 30GM TUBE ONE (09:01)
--- NOTE | 2019-02-03 09:44 | Cardiology Progress Note ---
Date of Service February 03, 2019 Assessment & Plan (1) Unstable angina: believe his symptoms are his anginal equivalent now with possible rest symptoms nitro paste Platelet count further declined overnight, now 92 cardiac cath would be high risk, discussed with patient and his , would pref er [place] [facility] [place] believe this is a cardoso choice, spoke with Dr. Elder at [facility], he is accepting of the patient I am highly suspicious that patient will have surgical disease significant CAD on last cath in 2004 would be high risk given comorbidities pt will be transferred via ambulance once bed is available. (2) Atrial fibrillation: rate controlled do not believe this is source of symptoms heparin held with platelet drop, will not restart at this time cont metoprolol (3) History of ITP: will require hematology eval (4) CKD (chronic kidney disease), stage III: stable (5) CAD (coronary artery disease): known disease cardiac cath results from 2004 are in my consult note Subjective Pt seen and examined with at bedside. States had some on/off chest discomfort overnight, not severe just noticable. No sob but has not ambulated. Denies palpitations, lightheadedness or dizziness. tele reviewed: afib with relatively slow rate response 50's-60's Review of Systems Review of Systems: All systems reviewed & are unremarkable except as noted in HPI & below Physical Exam Physical Exam: General: Awake, alert and oriented x 3. No acute distress. HEENT: Normocephalic, atraumatic. Pupils equal, round and reactive to light and accommodation. Extraocular muscles are intact. Anicteric sclera. Moist mucous membranes. Neck: No JVD. No bruit. Cardiovascular: irregularly irregular, unable to appreciate murmur, rub or gallop. Pulmonary: Clear to auscultation bilaterally. No rales, rhonchi, or wheezing. Abdomen: Bowel sounds x 4, soft. No rebound, guarding or tenderness. No organomegaly. Extremities: No clubbing, cyanosis or edema. +2 pedal pulses bilaterally. Skin: Warm and dry. Results & Data Vital Signs (Past 12 Hours) Vital Signs Temp Pulse Resp BP BP Pulse Ox 02/03/19 07:46 36.9 C 98 H 18 120/65 02/03/19 03:13 36.6 C 66 19 124/75 91 02/02/19 23:43 36.5 C 62 18 134/68 91
[2019-02-03] MEDS ORDERED: NITROGLYCERIN 2% OINTMENT 30GM TUBE EXT ONE (09:47)
[2019-02-03] MEDS: ACETAMINOPHEN 325 MG TAB PO PRN (09:50)
--- NOTE | 2019-02-03 10:37 | Discharge Summary ---
Date of Service February 03, 2019 Admission HPI Per Admitting Provider Pt is 83 y/o M with PMH CAD s/p bare metal stent to left circumflex in 2004, HTN, HLD, DM II, CKD III, carotid stenosis s/p right carotid endarterectomy 2004, PVD, gout, h/o ITP presented to ER with complaint of chest pain. Patient reports history of progressive exertional shortness of breath and occasional chest tightness with overexertion for several months. Was seen cardiology clinic 10/2018 and at that point time patient reports did not want further testing and Imdur was added. Patient states initially he felt like Imdur was helpful however felt like that was short-lived. Patient states over the past several days has been having intermittent chest tightness with associated shortness of breath and dizziness. Reports symptoms can happen at rest or with walking. Symptoms can last for approximately 30 minutes and then resolved. Patient reports that he has not tried any nitroglycerin at home for this pain. Pt states that he sweats easily and is unsure if he has increased diaphoresis with these episodes. He reports having his morning medicines today including Lopressor 50 mg, indoor 30 mg, amlodipine 5 mg, baby aspirin, furosemide 20 mg. Denies fever/chills, N/V/D/C, [place]ORNE,syncope, vision changes, neck pain, orthopnea, palpitations, cough, sore throat, choking, otalgia, rhinorrhea, abdominal pain, paresthesias, weakness, extremity weakness, extremity edema, rashes, urinary symptoms. In ER patient was given aspirin 324 mg p.o., nitroglycerin sublingual x1 taking chest discomfort from 8 out of 10 to 0-0.5/10 and patient denies any further shortness of breath or dizziness. Heart rate 40's-60's. BP: 117/69, 145/67, 95-98% on room air. Negative initial troponin. 2017 history echo: EF: 55-59%, grade 2 diastolic dysfunction, mild mitral regurgitation, trace tricuspid regurgitation, normal wall motion 01/2018 Lexiscan nuclear cardiac stress test: negative for ischemia. normal wall motion. The left ventricular ejection fraction:63%. History of cardiac cath 02/2015 at [facility]: 95% stenosis in PDA, 60% stenosis origin of the first obtuse marginal branch, 70% stenosis at junction of proximal and mid RCA, diffuse disease throughout the LAD Admission Exam Per Admitting Provider General: no acute distress, WDWN Head: normocephalic, atraumatic Eyes: PERRL, EOM's intact, conjunctiva non-injected, anicteric ENT: normal inspection external ears, nose, mucous membranes moist Neck: supple, trachea midline Lungs: clear, no respiratory distress, no wheezing/rhonchi/rales CV: rate 56, irregular, no murmur noted, no pretibial edema Abd: normal BS, soft, non-tender Ext: no cyanosis, no calf tenderness Neuro: A&O x 3, no focal deficits noted, normal affect Skin: warm, dry Principal Diagnosis Unstable angina history of CAD new onset atrial fibrillation ITP Discharge Data Allergies Allergy/AdvReac Type Severity Reaction Status Date / Time procaine Allergy Unknown passed out Verified 02/02/19 08:42 Bactrim AdvReac Mild HIVES Unverified 04/10/17 07:39 sulfamethoxazole AdvReac Mild HIVES Unverified 02/02/19 08:42 trimethoprim AdvReac Mild HIVES Unverified 02/02/19 08:42 Consultations 02/02/19 09:52 ED Decision to Admit Stat 02/02/19 11:30 Consult Cardiology Routine Consult Case Management - Discharge Planning Routine 02/03/19 10:10 Burn CD for patient Routine Procedures Performed Operation Date: 02/03/19 09:30 <No data on this case meets the specified criteria> Hospital Course (1) Unstable angina: (2) Atrial fibrillation: (3) History of ITP: (4) HTN (hypertension): (5) CKD (chronic kidney disease), stage III: (6) Diabetes mellitus, type II: 83-year-old man with a history of CAD status post bare-metal stent to left circumflex in 2004 who presents with persistent shortness of breath and chest pain. He was admitted to the hospitalist service out of concern for ACS. Chest x-ray was performed revealing mild interstitial chronic coarsening of the mid and lower lung zones and mild pulmonary edema versus nonspecific pneumonitis also in the differential. An echocardiogram was performed revealing normal LV systolic function with an ejection fraction 60 to 65%. No segmental left ventricular wall motion normalities were noted. Aortic valvular sclerosis was noted that was mild, without significant aortic valvular stenosis. There was moderate mitral regurgitation and no mitral valve stenosis. The LV chamber size was normal with evidence of mild concentric LVH. An EKG was performed revealing no active ischemia consistent with atrial fibrillation. Serial troponin enzymes were drawn overnight and negative. Cardiology was consulted. Work-up revealed new onset atrial fibrillation and he was placed on a heparin drip. He has a history of ITP and initial platelets were 109. Repeat labs the following morning revealed a platelet drop to 92. No active bleeding was present. The following morning the patient continued to have some chest pains at rest and some shortness of breath. He was on a nitroglycerin patch during symptoms, and also reported a headache. Cardiology recommended cardiac catheterization and with comorbidities, transfer to [facility] was recommended. At time of discharge a [id number] examination was performed revealing a hemodynamically stable and afebrile patient who is in no acute distress. At the time of evaluation he was not having any chest pain. Examination revealed an irregularly irregular rhythm with a normal rate and irregular pulses consistent with atrial fibrillation. No evidence of murmur was heard on exam. S1/S2 was heard. Lungs were clear to auscultation and abdomen was soft and nontender. The patient was euvolemic with no evidence of hypervolemia including no edema. He was sent to [facility] in stable condition for further cardiac work-up. Additionally of note, his has a relationship with an senior svp in [place], and with new onset atrial fibrillation he may be offered an EP study or ablation during his stay. However, the reason for transfer is to ensure appropriate support for him in the event of a complication with the planned cardiac catheterization in the setting of thrombocytopenia. Total Time Total Time Spent Total Time Spent (In Minutes): 60 Total Time Includes: Examination of the Patient, Discharge Planning, Medication Reconciliation, Communication With Other Providers and Other (facilitate acceptance at receiving facility, time to coordinate transfer) Discharge Plan Discharge Items Patient Disposition: Transfer Acute Care Hospital Reason For Visit: CP Discharge Diagnosis: Unstable angina history of CAD new onset atrial fibrillation ITP Condition: Good Discharge Goals: Diagnostic testing Activity: Resume your previous activity Non-emergency contact: Primary Care Provider Call non-emergency contact if: you have any medication questions, your symptoms worsen, your pain is not controlled, your pain is worsening, your pain is unusual for you, your pain is concerning for you and you have a fever Follow-up/Referrals: Jimmy Cota, [Primary Care Provider] - Diet: Heart Healthy Addtl Provider Instructions: You are being transferred to [facility] in [place], [place] for further testing. Please follow all discharge instructions given when you leave this facility. It is recommended that you follow-up with your primary care physician within one week of discharge. It was a pleasure taking care of you! Please call if you have any questions or problems. You can reach a [facility] hospitalist on duty at [facility] 24 hours a day by calling [phone]. Take care of yourself. Ketty Rice DO [facility] Pres[facility]: Continued isosorbide mononitrate 30 mg tablet extended release 24 hr 30 mg PO QAM RF: 0 amlodipine 5 mg tablet 5 mg PO DAILY RF: 0 metoprolol tartrate 50 mg tablet 50 mg PO BID RF: 0 allopurinol 300 mg tablet 300 mg PO DAILY RF: 0 furosemide 20 mg tablet 20 mg PO DAILY RF: 0 aspirin 81 mg Tablet,Delayed Release (Dr/Ec) 81 mg PO DAILY RF: 0 ranitidine HCl 150 mg Tablet 150 mg PO DAILY PRN (Reason: Heartburn) RF: 0 nitroglycerin 0.4 mg Tablet, Sublingual 0.4 mg sublingual UD RF: 0 omega-3 fatty acids 1,250 mg Capsule 1,250 mg PO DAILY RF: 0 No Action atorvastatin 80 mg tablet 80 mg PO PM RF: 0 Stand-Alone Forms: [facility] Discharge Orders: Discharge Order (Routine); Ordered 02/03/19 Ordered By: Ketty Rice Admission Data Admit Date/Time: 02/02/19 10:29 Attending Provider: Ketty Rice Admit Provider: Ibis Gee Primary Care Provider: Jimmy Cota Other Providers: Aquiles Baker ; Ketty Rice Service: Telemetry Medical
== END 2019-02-03 11:05 | disposition short-term general hospital (02) | DRG 309 ==
LOC: ED 08:11 → 2S 10:29